=== PATIENT | female | born 1945 | race Caucasian/White ===

== ENCOUNTER → 2016-12-06 | Outpatient (CLI) | payer OTHER | LOC: BHFA 10:45 | PROVIDERS: ATTEND Internal Medicine Cardiovascular Disease | DX: G20 Parkinson's disease (principal); I49.5 Sick sinus syndrome ==

== ENCOUNTER 2018-02-26 10:34 | Emergency (ER) | payer OTHER ==
--- NOTE | 2018-02-26 11:01 | EDPHY ---
H & P Stated Complaint: EYE SURG/CANCER LAST WEEK/NOW WITH HYPOTENSION AND SYNCOPE Time Seen by Provider: 02/26/18 10:52 HPI/ROS: CHIEF COMPLAINT: Syncope HISTORY OF PRESENT ILLNESS: The patient has a history of sick sinus syndrome. She has a pacemaker. She also has a history of presumed vasovagal syncope. She is on no antihypertensive medications. The patient has a history of eye surgery last week. She denies any chest pain or shortness of breath. She had 2 episodes of positional syncope at 8 o'clock at 8:30 a.m. this morning. She has no complaints of chest pain, shortness of breath, fever cough or congestion. The patient contacted her computer forensic specialist who referred her to the emergency department. The patient denies any focal numbness or weakness. She denies any additional complaints. REVIEW OF SYSTEMS: A comprehensive 10 point review of systems is otherwise negative aside from elements mentioned in the history of present illness. Source: Patient Exam Limitations: No limitations - Personal History Current Tetanus Diphtheria and Acellular Pertussis (TDAP): Yes Tetanus Vaccine Date: 2005 - Medical/Surgical History Hx Asthma: Yes Hx Diabetes: No Hx Cardiac Disease: Yes Hx Renal Disease: No Hx Cirrhosis: No Hx Alcoholism: No Hx HIV/AIDS: No Hx Splenectomy or Spleen Trauma: No Other PMH: PARKINSONS/PACEMAKER FOR SICK SINUS/CANCER R EYE - Social History Smoking Status: Never smoked - Physical Exam Exam: General Appearance: Alert, no distress Eyes: Patch over right eye ENT, Mouth: Mucous membranes moist Respiratory: There are no retractions, lungs are clear to auscultation Cardiovascular: 2/6 systolic ejection murmur Gastrointestinal: Abdomen is soft and nontender, no masses, bowel sounds normal Neurological: A&O, normal motor function, normal sensory exam, normal cranial nerves Skin: Warm and dry, no rashes Musculoskeletal: Neck is supple nontender Extremities: symmetrical, full range of motion Constitutional: Initial Vital Signs Temperature (C) 36.4 C 02/26/18 10:40 Heart Rate 70 02/26/18 10:40 Respiratory Rate 18 02/26/18 10:40 Blood Pressure 104/66 02/26/18 10:40 O2 Sat (%) 95 02/26/18 10:40 O2 Delivery Mode Room Air Allergies/Adverse Reactions: No Known Allergies Allergy (Verified 02/26/18 10:36) Home Medications: Medication Instructions Recorded Carbidopa/Levodopa 25/100Mg 1.5 tab PO TID@06,10,14 11/02/15 [Sinemet 25/100 MG (*)] Ciprofloxacin HCl [Ciprofloxacin 1 - 2 drop EACHEYE Q4 11/02/15 Opth Drops] Cyanocobalamin [Vitamin B12 (*)] 1,000 mcg PO DAILY 11/02/15 Docusate Sodium [Colace 100 MG (*)] 200 mg PO HS 11/02/15 Herbals/Supplements -Info Only 1 ea PO DAILY 11/02/15 Ibuprofen [Motrin (*)] 200 mg PO TID PRN 11/02/15 Melatonin [Melatonin 3 MG (*)] 3 mg PO HS 11/02/15 Niacin [Niacin 500 mg (*)] 1,000 mg PO HS 11/02/15 Pramipexole Di-HCl [Mirapex 1 mg 1 mg PO TID@06,10,14 11/02/15 (*)] Rasagiline Mesylate [Azilect] 1 mg PO DAILY 11/02/15 clonazePAM [Klonopin (*)] 0.5 mg PO HS 11/02/15 Medical Decision Making - Diagnostics EKG Interpretation: EKG: Complete interpretation has been separately recorded in the [employer] archive. Summary impression: Av paced rhythm, rate 70 ED Course/Re-evaluation: The patient presents to the ED after 2 episodes of recurrent syncope. She is hemodynamically stable in the emergency department. EKG demonstrates a paced rhythm. The patient had an IV established. She was placed on a electronic device monitor. The patient's pacemaker was interrogated by the pacemaker rep Devin Puentes who reset the CLS response device setting to medium. The patient will be advised to follow up in cardiology clinic. She has no evidence of a anemia, dehydration, concurrent metabolic abnormality, ischemia or traumatic injury. She was observed in the emergency department without recurrent syncopal episode. Differential Diagnosis: Differential diagnosis considered includes pacemaker malfunction, vasovagal syncope, dehydration, metabolic abnormality, arrhythmia, myocardial infarction - Data Points Laboratory Results: Laboratory Results 02/26/18 10:50 02/26/18 10:50 02/26/18 02/26/18 02/26/18 11:00 10:50 10:50 WBC 6.13 10^3/uL 10^3/uL (3.80-9.50) RBC 4.14 10^6/uL L 10^6/uL (4.18-5.33) Hgb 13.4 g/dL g/dL (12.6-16.3) Hct 39.6 % % (38.0-47.0) MCV 95.7 fL fL (81.5-99.8) MCH 32.4 pg pg (27.9-34.1) MCHC 33.8 g/dL g/dL (32.4-36.7) RDW 11.6 % % (11.5-15.2) Plt Count 252 10^3/uL 10^3/uL (150-400) MPV 9.0 fL fL (8.7-11.7) Neut % (Auto) 71.5 % % (39.3-74.2) Lymph % (Auto) 18.4 % % (15.0-45.0) [place] % (Auto) 7.8 % % (4.5-13.0) Eos % (Auto) 1.3 % % (0.6-7.6) Baso % (Auto) 0.5 % % (0.3-1.7) Nucleat RBC Rel Count 0.0 % % (0.0-0.2) Absolute Neuts (auto) 4.38 10^3/uL 10^3/uL (1.70-6.50) Absolute Lymphs (auto) 1.13 10^3/uL 10^3/uL (1.00-3.00) Absolute Monos (auto) 0.48 10^3/uL 10^3/uL (0.30-0.80) Absolute Eos (auto) 0.08 10^3/uL 10^3/uL (0.03-0.40) Absolute Basos (auto) 0.03 10^3/uL 10^3/uL (0.02-0.10) Absolute Nucleated RBC 0.00 10^3/uL 10^3/uL (0-0.01) Immature Gran % 0.5 % % (0.0-1.1) Immature Gran # 0.03 10^3/uL 10^3/uL (0.00-0.10) Sodium 139 mEq/L mEq/L (135-145) Potassium 4.2 mEq/L mEq/L (3.3-5.0) Chloride 102 mEq/L mEq/L (97-110) Carbon Dioxide 27 mEq/l mEq/l (22-31) Anion Gap 10 mEq/L mEq/L (8-16) BUN 25 mg/dL H mg/dL (7-23) Creatinine 0.9 mg/dL mg/dL (0.6-1.0) Estimated GFR > 60 Glucose 94 mg/dL mg/dL (70-100) Calcium 9.6 mg/dL mg/dL (8.5-10.4) POC Troponin I 0.00 ng/mL ng/mL (0.00-0.08) Point of Care Test Results: Chemistry 02/26/18 11:00 POC Troponin I 0.00 ng/mL ng/mL (0.00-0.08) Departure - Departure Disposition: Home, Routine, Self-Care Clinical Impression: Vasovagal syncope Condition: Good Instructions: Syncope (ED) Additional Instructions: 1. Please return to the ED for any recurrent syncope, chest pain, shortness of breath or other concerns. 2. Your pacemaker device has been reset to hopefully improve your symptoms of syncope. 3. Please follow up with Cardiology for recheck within the week. Referrals: [facility]CNULT[facility] [Other] - As per Instructions
--- NOTE | 2018-02-26 11:09 | CPEKG ---
Heart Rate: 70 RR Interval: 857 P-R Interval: 164 QRSD Interval: 100 QT Interval: 436 QTC Interval: 471 QRS [place]: 70 T Wave [place]: 10 EKG Severity - ABNORMAL ECG - EKG Impression: ATRIAL-PACED RHYTHM Electronically Signed By: Carlos Sommer 26-Feb-2018 11:21:43
[2018-02-26 11:10] LABS: PLATELET COUNT 252 10^3/uL (150-400)
[2018-02-26 12:56] VITALS: BP 97/72
== END 2018-02-26 12:56 | disposition home or self-care (01) ==
DX: R55 Syncope and collapse (principal); G20 Parkinson's disease; J45.909 Unspecified asthma, uncomplicated; Z85.840 Personal history of malignant neoplasm of eye; Z95.0 Presence of cardiac pacemaker
CPT/HCPCS: 84484-PO

== ENCOUNTER 2018-12-25 05:37 | Inpatient (IN) | payer OTHER ==
[2018-12-25] MEDS ORDERED: ROPIVACAINE 0.2% 80 MG, EPINEPHrine 0.2 MG, KETOROLAC TROMETHAMINE 30 MG in SYRINGE 0 ML IU ONE (06:00)
[2018-12-25] MEDS ORDERED: TRANEXAMIC ACID 3,000 MG in NS (SYRINGE) 50 ML IRR ONE (06:00)
--- NOTE | 2018-12-25 06:00 | PDHPUP ---
History & Physical Update H&P update statement: This history and physical update is based on an assessment of the patient which was completed after admission or registration (within 24 hours), but prior to the surgery/procedure. H&P update: H&P reviewed & patient examined, no change in patient's condition since H&P completed
[2018-12-25] MEDS ORDERED: FAMOTIDINE 20 MG TAB PO ONE (06:06)
[2018-12-25] MEDS ORDERED: ceFAZolin 2 GM/DEXTROSE 100 ML IV ONE (06:06)
[2018-12-25] MEDS ORDERED: LIDOCAINE 1% 2 ML INJ ID PRN (06:06)
[2018-12-25] MEDS ORDERED: LR 1,000 ML IV ONE (06:06)
[2018-12-25] MEDS ORDERED: ACETAMINOPHEN 325 MG TAB PO ONE (06:06)
[2018-12-25] MEDS ORDERED: DEXAMETHASONE 4 MG/ML VIAL IVP ONE (06:06)
[2018-12-25] MEDS ORDERED: TRANEXAMIC ACID 3,000 MG/50 ML BAG IRR ONE (06:55)
--- NOTE | 2018-12-25 07:05 | POSTANESTH ---
Post Anesthetic Evaluation Cardiovascular Status: Normal, Stable Respiratory Status: Normal, Stable Level of Consciousness/Mental Status: Can Participate in Eval, Alert and Oriented Pain Control: Adequate, Prn Tx Ordered Nausea/Vomiting Control: Adequate, Prn Tx Ordered Complications Possibly Related to Anesthesia: None Noted Notes: Moving B LE, though still weak.
--- NOTE | 2018-12-25 07:08 | PDANEPAE ---
ANE History of Present Illness 73 yo female with L hip OA for L GERRI. ANE Past Medical History - Cardiovascular History Hx Hypertension: No Hx Arrhythmias: Yes Hx Coronary Artery / Peripheral Vascular Disease: No Hx CHF / Valvular Disease: No Hx Palpitations: No Cardiovascular History Comment: h/o autonomic dysfunction leading to orthostatic hypotension. Started florinef and midodrine to correct this. - Pulmonary History Hx COPD: No Hx Asthma/Reactive Airway Disease: Yes Hx Recent Upper Respiratory Infection: No Hx Oxygen in Use at Home: No Hx Sleep Apnea: Yes Sleep Apnea Screening Result - Last Documented: Positive Pulmonary History Comment: uses inhalers. Pt had sleep study about 1.5 yrs ago at [facility]- does not know the results, but does not use any device - Neurologic History Hx Cerebrovascular Accident: No Hx Seizures: No Hx Dementia: No Neurologic History Comment: Parkinson's dz on multi meds - Endocrine History Hx Diabetes: No Hypothyroid: No Hyperthyroid: No - Renal History Hx Renal Disorders: No - Liver History Hx Hepatic Disorders: No - Neurological & Psychiatric Hx Neurological / Psychiatric History Comment: parkinsons disease. anxiety - Cancer History Hx Cancer: Yes Cancer History Comment: skin cancer - Congenital Disorder History Hx Congenital Disorders: No - GI History Hx Gastrointestinal Disorders: No - Other Health History Other Health History: knuckle not healing on right hand - Chronic Pain History Chronic Pain: Yes - Surgical History Prior Surgeries: none in last 10yrs. A/V pacemaker placement 2016 for intermittent complete heart block ANE Review of Systems Review of systems is: negative Review of Systems: - Exercise capacity METS (RN): 2 METS - Systems Muscolosketal: Reports: joint pain - Pacemaker Pacemaker Type: Permanent Pacer/Defib Pacemaker Tire Recapper: Storytreeronik Pacemaker Model: [id number] Pacemaker Mode: DDD-CLS Date Pacemaker Last Checked: 2 WEEKS AGO FROM TODAY ANE Patient History - Allergies Allergies/Adverse Reactions: No Known Allergies Allergy (Verified 12/18/18 09:48) - Home Medications Home Medications: Carbidopa/Levodopa 25/100Mg [Sinemet 25/100 MG (*)] 2 tab PO 08,1030,14,17,21 [Last Taken 12/24/18] Docusate Sodium [Colace 100 MG (*)] 200 mg PO HS 11/02/15 [Last Taken 12/24/18] Rasagiline Mesylate [Azilect] 1 mg PO DAILY 11/02/15 [Last Taken 12/24/18] clonazePAM [Klonopin (*)] 0.5 mg PO HS 11/02/15 [Last Taken 12/24/18] Donepezil HCl [Aricept] 10 mg PO DAILY 12/13/18 [Last Taken Unknown] Entacapone [Comtan 200 MG (RX)] 200 mg PO BID@12,17 12/13/18 [Last Taken ] Fludrocortisone Acetate [Florinef 0.1 MG (RX)] 0.1 mg PO DAILY 12/13/18 [Last Taken 12/24/18] Fluticasone/Vilanterol [Breo Ellipta 100-25 Mcg INH] 1 puffs IH DAILY 12/13/18 [ Last Taken 12/24/18] Meloxicam 15 mg PO DAILY PRN 12/13/18 [Last Taken 12/11/18] Midodrine HCl 10 mg PO TID@08,12,17 12/13/18 [Last Taken 12/24/18] Ondansetron Odt [Zofran Odt 4 mg (*)] 4 mg PO Q4 PRN 12/13/18 [Last Taken ] Sertraline HCl [Zoloft 25mg (*)] 25 mg PO DAILY 12/13/18 [Last Taken 12/24/18] clonazePAM [Klonopin (*)] 0.25 mg PO DAILY PRN 12/13/18 [Last Taken 12/24/18] - NPO status NPO Since - Liquids (Date): 12/24/18 NPO Since - Liquids (Time): 18:00 NPO Since - Solids (Date): 12/24/18 NPO Since - Solids (Time): 18:00 - Anes Hx Anes Hx: no prior problems - Smoking Hx Smoking Status: Never smoked - Alcohol Use Alcohol Use: Occasionally - Family Anes Hx Family Anes Hx: neg - N/A Family Hx Anesthesia Complications: none ANE Labs/Vital Signs - Vital Signs Vital Signs: reviewed preoperatively; see RN documention for details Blood Pressure: 179/97 (pts states this is unusually high for her) Height: 172.72 cm Weight: 59.874 kg ANE Physical Exam - Airway Neck exam: decreased ROM Mallampati Score: Class 2 Mouth exam: normal dental/mouth exam - Pulmonary Pulmonary: clear to auscultation - Cardiovascular Cardiovascular: regular rate and rhythym - ASA Status ASA Status: III ANE Anesthesia Plan Anesthesia Plan: spinal
[2018-12-25] MEDS ORDERED: fentaNYL 100 MCG/2 ML INJ ONE (07:44)
[2018-12-25] MEDS ORDERED: PROPOFOL/EMULSION 500 MG/50 ML BOTTLE IV ONE (07:44)
[2018-12-25] MEDS ORDERED: LIDOCAINE 2% 2 ML INJ ONE ×2 (07:44)
[2018-12-25] MEDS ORDERED: DEXAMETHASONE 4 MG/ML VIAL ONE (07:47)
[2018-12-25] MEDS ORDERED: NALOXONE HCL 0.4 MG/ML INJ IVP PRN (09:23)
[2018-12-25] MEDS ORDERED: oxyCODONE IR 5 MG TAB PO PRN (09:23)
[2018-12-25] MEDS ORDERED: LR 250 ML IV PRN (09:23)
[2018-12-25] MEDS ORDERED: ALBUTEROL 3 ML DEYVIAL IH PRN (09:23)
[2018-12-25] MEDS ORDERED: ONDANSETRON 4 MG/2 ML VIAL IVP PRN ×2 (09:23→09:36)
[2018-12-25] MEDS ORDERED: ACETAMINOPHEN 500 MG TAB PO PRN (09:23)
--- NOTE | 2018-12-25 09:35 | POSTOPPROG ---
Post Op Note Date of Operation: 12/25/18 Surgeon: Ren Escobar [employer] Dispatcher: Arti GUERRERO Anesthesiologist: Dr. Sariah Weston Anesthesia: Spinal Pre-op Diagnosis: left hip OA Post-op Diagnosis: same Indication: left hip pain Procedure: LTHA Findings: severe OA of left hip Inf/Abcess present in the surg proc area at time of surgery?: No EBL: 50-100
[2018-12-25] MEDS ORDERED: METOCLOPRAMIDE 10 MG/2 ML VIAL IVP PRN (09:36)
[2018-12-25] MEDS ORDERED: TEMAZEPAM 15 MG CAP PO PRN (09:36)
[2018-12-25] MEDS ORDERED: MAGNESIUM HYDROXIDE 30 ML UDCUP PO PRN (09:36)
[2018-12-25] MEDS ORDERED: BISACODYL 10 MG SUPP PR PRN (09:36)
[2018-12-25] MEDS ORDERED: POLYETHYLENE GLYCOL 3350 17 GM PKT PO PRN (09:36)
[2018-12-25] MEDS ORDERED: PROMETHAZINE HCL 25 MG SUPPR PR PRN (09:36)
[2018-12-25] MEDS ORDERED: DIPHENOXYLATE/ATROPINE LOMOTIL 1 TAB PO PRN (09:36)
[2018-12-25] MEDS ORDERED: PROMETHAZINE HCL 25 MG/ML INJ IVP PRN (09:36)
[2018-12-25] MEDS ORDERED: ONDANSETRON DISINTEGRATING 4 MG TAB PO PRN (09:36)
[2018-12-25] MEDS ORDERED: diphenhydrAMINE 25 MG CAP PO PRN (09:36)
[2018-12-25] MEDS ORDERED: LACTULOSE 20 GM/30 ML UDCUP PO PRN (09:36)
[2018-12-25] MEDS ORDERED: clonazePAM 0.5 MG TAB PO PRN (09:40)
[2018-12-25] MEDS ORDERED: LR 1,000 ML IV SCH (10:00)
--- NOTE | 2018-12-25 10:26 | PDMN ---
Medical Necessity Medical necessity: [facility] S560 hip arthroplasty A-2 days: OP: L GERRI
[2018-12-25] MEDS: CARBIDOPA/LEVODOPA 25 MG/100 MG TAB PO SCH ×4 (12:20→20:15)
[2018-12-25] MEDS: ENTACAPONE 200 MG TAB PO SCH ×2 (13:05→13:09)
--- NOTE | 2018-12-25 14:17 | SOAPPROG ---
SOAP Progress Note Assessment/Plan: Assessment: s/p left GERRI, anterior approach - procedure earlier today with Dr. Escobar Doing well History of Parkinsons, pacemaker Plan: Begin d/c planning - likely home tomorrow, will have support from her Continue VTE ppx- aspirin 81 mg BID x 4 weeks, KAREN hose x 2 weeks, SCDs in hospital Continue oral pain medication oxycodone, Tylenol, Celebrex; Dr. Escobar will avoid Flexeril in the patient due to the possibility of serotonin syndrome ( patient is on sertraline and rasagiline) Continue PT efforts WBAT, ROM as tolerated follow anterior total hip precautions Follow up with Arti Rodriguez PA-C, on 01/14/19 at 11:15 am Subjective: Patient states she is doing well, left hip pain is minimal at this time secondary to the spinal anesthesia. She is planning on going home tomorrow and will have the support of her . She denies SOB, CP, fever, chills. Objective: Vital Signs Temp Pulse Resp BP Pulse Ox 36.7 C 87 15 117/66 97 12/25/18 13:19 12/25/18 13:19 12/25/18 13:19 12/25/18 13:19 12/25/18 13:19 12/24/18 12/25/18 12/26/18 05:59 05:59 05:59 Intake Total 1000 Output Total 1050 Balance -50 Patient resting comfortably in bed, no acute distress. Her is present in the room. LLE: Hip wound dressings clean, dry and intact. Lower leg compartments are soft and nontender. Negative Homans sign bilaterally. Patient can actively DF and PF her left foot and great toe against resistance. Grossly NVI distally. ICD10 Worksheet Patient Problems: Problems Problem Status Onset Unilateral primary osteoarthritis, left hip Acute Syncope Acute
[2018-12-25] MEDS: MIDODRINE HCL 10 MG TAB PO SCH ×2 (15:02→16:24)
[2018-12-25] MEDS: ACETAMINOPHEN 325 MG TAB PO SCH (16:24)
[2018-12-25] MEDS: ceFAZolin 2 GM/DEXTROSE 100 ML IV SCH ×2 (16:24→23:14)
[2018-12-25] MEDS: clonazePAM 0.5 MG TAB PO SCH (20:14)
[2018-12-25] MEDS: SENNOSIDES/DOCUSATE SODIUM TAB PO SCH (20:14)
[2018-12-25] MEDS: ASPIRIN 81 MG CHEWABLE TAB PO SCH (20:14)
[2018-12-25] MEDS: FAMOTIDINE 20 MG TAB PO SCH (20:15)
[2018-12-25] MEDS: MOMETASONE IH SCH (20:52)
[2018-12-25] MEDS: FORMOTEROL IH SCH (20:52)
[2018-12-26] MEDS: ACETAMINOPHEN 325 MG TAB PO SCH ×5 (00:06→21:36)
[2018-12-26] MEDS: CARBIDOPA/LEVODOPA 25 MG/100 MG TAB PO SCH ×5 (08:13→20:55)
[2018-12-26] MEDS: SENNOSIDES/DOCUSATE SODIUM TAB PO SCH ×2 (08:13→20:54)
[2018-12-26] MEDS: DONEPEZIL HCL 5 MG TAB PO SCH (08:13)
[2018-12-26] MEDS: ASPIRIN 81 MG CHEWABLE TAB PO SCH ×2 (08:13→20:54)
[2018-12-26] MEDS: FLUDROCORTISONE ACETATE 0.1 MG TAB PO SCH (08:14)
[2018-12-26] MEDS: SERTRALINE HCL 25 MG TAB PO SCH (08:14)
[2018-12-26] MEDS: FAMOTIDINE 20 MG TAB PO SCH ×2 (08:14→20:54)
[2018-12-26] MEDS: MIDODRINE HCL 10 MG TAB PO SCH ×3 (08:27→17:01)
[2018-12-26] MEDS ORDERED: Fluticasone/Vilanterol [Breo Ellipta 100-25 Mcg Inh] 1 PUFFS IH SCH (09:00)
[2018-12-26] MEDS: FORMOTEROL IH SCH ×2 (10:33→15:44)
[2018-12-26] MEDS: MOMETASONE IH SCH ×2 (10:33→15:44)
[2018-12-26] MEDS: Rasagiline Mesylate [Azilect] 1 MG PO SCH ×3 (10:35→13:04)
--- NOTE | 2018-12-26 12:37 | SOAPPROG ---
SOAP Progress Note Assessment/Plan: Assessment: s/p left GERRI, anterior approach with Dr. Escobar - POD 1 Hip is doing well, but patient was very lethargic, confused this morning History of Parkinsons, pacemaker Plan: Continue d/c planning - she will have support from her , we will keep the patient another couple days to ensure she is doing well. I am going to recommend that her stay the night Hospitalist consult - hypertension, urinary retention, confusion, Parkinson's Continue VTE ppx- aspirin 81 mg BID x 4 weeks, KAREN hose x 2 weeks, SCDs in hospital Continue oral pain medication as needed - oxycodone, Tylenol, Celebrex; Dr. Escobar will avoid Flexeril in the patient due to the possibility of serotonin syndrome (patient is on sertraline and rasagiline) Continue PT efforts WBAT, ROM as tolerated follow anterior total hip precautions. OT ordered. Needs PT/OT clearance prior to d/c Follow up with Arti Rodriguez PA-C, on 01/14/19 at 11:15 am Subjective: This morning around 7:20 Dr. Escobar, Arti Rodriguez PA-C and myself saw the patient. It was very difficult to awaken her and once we did she was confused, not speaking in full sentences, very lethargic. Her nurse stated the patient was sundowning last evening and throughout the night she was trying to get out of her bed. She needed to have a Weaver catheter placed 3 times. I went back to see the patient around 11:00 am and she is more awake and alert. Patient states she is doing well, left hip pain is minimal at this time. She does not recall Dr. Escobar coming into her room this morning. Her is also present in the room. I informed the patient that we would like for her to stay in the hospital tonight and possibly another night. Dr. Escobar agrees that OT and the hospitalist evaluate the patient. She denies SOB, CP, fever, chills. Objective: Vital Signs Temp Pulse Resp BP Pulse Ox 36.9 C 84 27 H 80/42 L 96 12/26/18 11:22 12/26/18 11:22 12/26/18 11:22 12/26/18 11:22 12/26/18 11:22 Laboratory Results 12/26/18 04:55 12/25/18 12/26/18 12/27/18 05:59 05:59 05:59 Intake Total 1750 Output Total 5915 250 Balance -1625 -250 Patient resting comfortably in bed, no acute distress. LLE: Hip wound dressings clean, dry and intact. Lower leg compartments are soft and nontender. Negative Homans sign bilaterally. Patient can actively DF and PF her left foot and great toe against resistance. Grossly NVI distally. ICD10 Worksheet Patient Problems: Problems Problem Status Onset Unilateral primary osteoarthritis, left hip Acute Syncope Acute
--- NOTE | 2018-12-26 13:06 | PDHOSCONS ---
History and Physical - Chief Complaint Confusion, Hypotension - History of Present Illness This is a 73 yo female who we have been asked to consult on for confusion, hypotension, and medical mgmt. She had Left TKA by Dr. Escobar yesterday. She has an extensive medical history including Parkinson's, Dementia, Depression, Orthostatic Hypotension (severe), and SSS a/p PPM. Earlier today, she was found to have confusion. Her BP has been intermittently low in the 70's systolic. HR has been ok. She has been afebrile. Hgb is decreased slightly but appropriate. She has not had a fever. She is currently awake and eating and is able to provide a full history of why she is here. She reports that her BP ranges between systolic of 80's-120's and is lower if a dose of her medication is missed. She was not given Midodrine this morning. She has been on Florinef for over a year. She has also been on Midodrine and this was increased recently. There was some concern about urinary retention. The pt reports that this is typically not a problem but when it has been she start to urinate freely and regularly. She does not take any diuretics. She is not on urinary retention meds. is at bedside Denies cough, sob, n/v, dizziness, fever PMHx: per above PSHx: PPM, LTKA SocHx: FmHx: non contributory History Information - Allergies/Home Medication List Allergies/Adverse Reactions: No Known Allergies Allergy (Verified 12/18/18 09:48) Home Medications: Carbidopa/Levodopa 25/100Mg [Sinemet 25/100 MG (*)] 2 tab PO 08,1030,14,17,21 [Last Taken 12/24/18] Docusate Sodium [Colace 100 MG (*)] 200 mg PO HS 11/02/15 [Last Taken 12/24/18] Rasagiline Mesylate [Azilect] 1 mg PO DAILY 11/02/15 [Last Taken 12/24/18] clonazePAM [Klonopin (*)] 0.5 mg PO HS 11/02/15 [Last Taken 12/24/18] Donepezil HCl [Aricept] 10 mg PO DAILY 12/13/18 [Last Taken Unknown] Fludrocortisone Acetate [Florinef] 0.1 mg PO DAILY 12/13/18 [Last Taken 12/24/18 ] Midodrine HCl 10 mg PO TID@08,12,17 12/13/18 [Last Taken 12/24/18] Ondansetron Odt [Zofran Odt 4 mg (*)] 4 mg PO Q4 PRN 12/13/18 [Last Taken ] Sertraline HCl [Zoloft 25mg (*)] 25 mg PO DAILY 12/13/18 [Last Taken 12/24/18] clonazePAM [Klonopin (*)] 0.25 mg PO DAILY PRN 12/13/18 [Last Taken 12/24/18] Mometasone/Formoterol [Dulera 100 Mcg/5 Mcg Inhaler] 4 puffs IH BID 12/25/18 [ Last Taken Unknown] I have personally reviewed and updated: medical history, social history - Social History Smoking Status: Never smoked Alcohol Use: Occasionally Review of Systems Review of Systems: ROS: 10pt was reviewed & negative except for what was stated in HPI & below Physical Exam Physical Exam: Temp Pulse Resp BP Pulse Ox 36.9 C 84 27 H 80/42 L 96 12/26/18 11:22 12/26/18 11:22 12/26/18 11:22 12/26/18 11:22 12/26/18 11:22 O2 (L/minute) 1 Constitutional: no apparent distress Eyes: PERRL, EOMI Ears, Nose, Mouth, Throat: moist mucous membranes, hearing normal Cardiovascular: regular rate and rhythym Respiratory: no respiratory distress, no rales or rhonchi, clear to auscultation , reduced air movement Gastrointestinal: normoactive bowel sounds, soft, non-tender abdomen Skin: warm Neurologic: AAOx3 Psychiatric: interacting appropriately, not anxious, not encephalopathic Lymph, Heme, Immunologic: No petechiae Lab Data & Imaging Review 12/26/18 04:55 Hgb 10.5 g/dL (12.6-16.3) L 12/26/18 04:55 Hct 31.2 % (38.0-47.0) L 12/26/18 04:55 Assessment & Plan Assessment: #s/p L TKA -mgmt per primary #Acute Encephalopathy, appears resolved. She is back to baseline currently. -She may have some delirium intermittently and its important for her to return to a familiar environment soon, when clinically indicated -Avoid sedating meds, but she has had minimal narcotics #Hypotension in a pt with hx of orthostatic hypotension and syncope felt to be due to autonomic Dysfunction -She has variable BP -It is important to continue both Florinef and Midodrine as scheduled. Her low BP today is likely due to missed dose -Volume status looks ok -Afebrile -no e/o of severe anemia -For completion sake, I will obtain a full lab panel #Post operative anemia, mild -likely not contributing to hypotension #Parkinson's -cont home meds: Carbidopa, Rasagiline #Dementia: on Aricept #s/p PPM for SSS #Depression: home meds #Urinary retention: This is not atypical. She reports resolution and voiding ok now. Will manage PRN. VTE: Per Primary Thank you for this consult. The pt will likely be ok for discharge tomorrow. We will follow in the hospital.
[2018-12-26] MEDS: clonazePAM 0.5 MG TAB PO SCH (20:54)
[2018-12-26] MEDS: oxyCODONE IR 5 MG TAB PO PRN (20:56)
[2018-12-27] MEDS: ACETAMINOPHEN 325 MG TAB PO SCH ×2 (03:58→09:07)
[2018-12-27 05:17] LABS: PLATELET COUNT 225 10^3/uL (150-400)
[2018-12-27] MEDS: MOMETASONE IH SCH (09:00)
[2018-12-27] MEDS: FORMOTEROL IH SCH (09:00)
[2018-12-27] MEDS: MIDODRINE HCL 10 MG TAB PO SCH ×2 (09:07→12:02)
[2018-12-27] MEDS: FLUDROCORTISONE ACETATE 0.1 MG TAB PO SCH (09:07)
[2018-12-27] MEDS: DONEPEZIL HCL 5 MG TAB PO SCH (09:07)
[2018-12-27] MEDS: CARBIDOPA/LEVODOPA 25 MG/100 MG TAB PO SCH ×3 (09:07→14:00)
[2018-12-27] MEDS: ASPIRIN 81 MG CHEWABLE TAB PO SCH (09:07)
[2018-12-27] MEDS: SERTRALINE HCL 25 MG TAB PO SCH (09:08)
[2018-12-27] MEDS: FAMOTIDINE 20 MG TAB PO SCH (09:08)
[2018-12-27] MEDS: SENNOSIDES/DOCUSATE SODIUM TAB PO SCH (09:08)
[2018-12-27] MEDS: Rasagiline Mesylate [Azilect] 1 MG PO SCH (09:15)
--- NOTE | 2018-12-27 10:52 | HOSPPROG ---
Hospitalist Progress Note Assessment/Plan: #s/p L TKA -mgmt per primary #Acute Encephalopathy, appears resolved. She is back to baseline currently. -She may have some delirium intermittently and its important for her to return to a familiar environment soon, when clinically indicated -Avoid sedating meds, but she has had minimal narcotics #Hypotension in a pt with hx of orthostatic hypotension and syncope felt to be due to autonomic Dysfunction -now normotensive -It is important to continue both Florinef and Midodrine as scheduled. Her low BP today is likely due to missed dose -Volume status looks ok -Afebrile -no e/o of severe anemia -labs look ok #Post operative anemia, mild -likely not contributing to hypotension #Parkinson's -cont home meds: Carbidopa, Rasagiline #Dementia: on Aricept #s/p PPM for SSS #Depression: home meds #Urinary retention: This is not atypical. She reports resolution and voiding ok now. Will manage PRN. VTE: Per Primary Thank you for this consult. The pt is ok for discharge from a hospitalist perspective. Subjective: feels her usual self. Alert and oriented. no cp or sob. BP is ok. Objective: Vital Signs Temp Pulse Resp BP Pulse Ox 37.1 C 81 16 134/81 H 95 12/27/18 07:45 12/27/18 09:04 12/27/18 09:04 12/27/18 07:45 12/27/18 09:04 Laboratory Results 12/27/18 04:43 12/27/18 04:43 12/26/18 12/27/18 12/28/18 05:59 05:59 05:59 Intake Total 1750 1650 Output Total 3375 900 Balance -1625 750 - Physical Exam Constitutional: no apparent distress Eyes: PERRL Ears, Nose, Mouth, Throat: moist mucous membranes, hearing normal Cardiovascular: regular rate and rhythym Respiratory: no respiratory distress, no rales or rhonchi, clear to auscultation Gastrointestinal: normoactive bowel sounds, soft, non-tender abdomen Skin: warm Neurologic: AAOx3 Psychiatric: interacting appropriately, not anxious, not encephalopathic ICD10 Worksheet Patient Problems: Problems Problem Status Onset Unilateral primary osteoarthritis, left hip Acute Syncope Acute
[2018-12-27 11:53] VITALS: BP 110/63
--- NOTE | 2018-12-27 12:26 | SOAPPROG ---
SOAP Progress Note Assessment/Plan: Assessment: Patient is doing well POD 2 s/p LTHA Pain management: pain is well controlled on oral pain meds. VTE ppx: recommend aspirin 81 mg BID for 4 weeks, cont KAREN and SCDs Anemia: level is expected initially postop. Asymptomatic. Continue to monitor Hypotension: history of orthostatic hypotension likely exacerbated by surgery- improved today. Continue Florinef and Midodrine Parkinson's: continue home meds Dementia: continue aricept Urinary retention: resolved D/c planning: Patient has improved since yesterday and would like to be discharged to home today. Patient must be released from PT before discharge to home. Plan: 12/27/18 12:22 Subjective: Pain well controlled on oral pain meds. No nausea, vomiting, shortness of breath or chest pain Objective: Vital Signs Temp Pulse Resp BP Pulse Ox 36.6 C 92 18 110/63 2 L 12/27/18 11:50 12/27/18 11:50 12/27/18 11:50 12/27/18 11:50 12/27/18 11:50 Laboratory Results 12/27/18 04:43 12/27/18 04:43 12/26/18 12/27/18 12/28/18 05:59 05:59 05:59 Intake Total 1750 1650 Output Total 6615 900 Balance -1625 750 LLE: incision dressing clean and dry; positive PF/DF ICD10 Worksheet Patient Problems: Problems Problem Status Onset Unilateral primary osteoarthritis, left hip Acute Primary osteoarthritis of left hip Acute Primary osteoarthritis of left knee Acute Syncope Acute
[2018-12-27] MEDS: oxyCODONE IR 5 MG TAB PO PRN (14:02)
--- NOTE | 2018-12-28 12:30 | GOP ---
[f rep st] OPERATIVE REPORT DATE OF OPERATION: 12/25/2018 SURGEON: Luci Escobar MD DESIGN DRAFTSMAN: Alivia Rodriguez P.A.-C. PREOPERATIVE DIAGNOSIS: Left hip osteoarthritis. POSTOPERATIVE DIAGNOSIS: Left hip osteoarthritis. PROCEDURE PERFORMED: Left total hip arthroplasty with x-ray. FINDINGS: ESTIMATED BLOOD LOSS: 200 cc. INDICATIONS: The patient has progressively worsening arthritis of the hip which has failed medical m anagement. The patient understands the treatment options including continued non-operative care and has selected surgical intervention. The patient has decided to undergo total hip arthroplasty via th e direct anterior approach, understanding the risks of the procedure including, but not limited to, n eurovascular injury, infection, persistent pain, component wear and loosening, deep venous thrombosis , pulmonary embolism, limb length inequality, hip instability (including dislocation), and intra-oper ative fractures. DESCRIPTION OF PROCEDURE: After proper identification of the patient including verification and karin ing the surgical site, the patient was brought to the operating room and placed in the supine positio n. All bony prominences were well padded. Anesthesia was induced without complication and intraveno us prophylactic antibiotics were administered prior to skin incision. The operative leg was placed in the Trumpf Arch table extension and the well leg in a [place]ofin leg ho lder. The patient was prepped and draped in the usual sterile fashion. The C-arm was draped for int ra-operative fluoroscopy to check acetabular position, femoral component position including leg lengt h and femoral offset. Attention was then drawn to surgical exposure of the hip. An incision was made with a #10 [place] r blade starting 3 cm lateral and 3 cm distal to the anterior superior iliac spine measuring 8-10 cm and coursing distally toward the greater trochanter. The skin and subcutaneous tissues were divided sharply down to the fascia annamarie. The fascia annamarie was incised in line with the skin incision exposing the underlying tensor fascia annamarie muscle. The muscle was bluntly elevated from the fascia and the f irst extracapsular Cobra retractor was placed laterally at the junction of the superior femoral neck and greater trochanter. The lateral femoral circumflex vessels were identified, cauterized, and divi ded with the Aquamantys bipolar cautery. The deep investing fascia of the TFL was divided to allow p jim mobilization of the muscle preventing damage during the retraction. The reflected head of the rectus femoris muscle was elevated off the anterior hip capsule and a medial Cobra retractor was plac ed just proximal to the lesser trochanter. The anterior capsulotomy was made sharply from the superolateral acetabulum to the saddle junction of the superior femoral neck and greater trochanter, then coursing inferomedial towards the lesser troc hanter. The retractors were then placed in the intracapsular position for femoral neck osteotomy. C orresponding to pre-operative templating, the osteotomy was made with the oscillating saw carefully p rotecting the greater trochanter and soft tissues. The femoral head was removed from the acetabulum with a corkscrew and confirmed to be severely arthritic with exposed bone, deformity and osteophytes. Similar findings were confirmed in the acetabulum. The Arch table extension was then placed in 40 degrees external rotation. Attention was then drawn to the acetabular preparation. After placement of the anterior and posterio r Cobra retractors outside the labrum and intracapsular, the circumferential labrum was removed sharp ly. The foveal contents were then removed and hemostasis obtained with cautery. The first reamer selected was sized using the removed femoral head. Reaming began with medialization and then commenced in 2 mm increments at 45 degrees of abduction and 15 degrees of anteversion using fluoroscopic navigation. Reaming ceased 1 mm less than the definitive acetabular component and theresa esponded to the pre-operative templating. The final acetabular component was inserted using fluorosc opy to achieve proper orientation yielding excellent purchase and stability in the acetabulum. The f inal acetabular liner was then placed and its seating confirmed. Attention was then turned to the femur. The Arch table extension was placed in extension and adducti on, delivering the osteotomized femoral neck into the wound. A 2-pronged femoral elevator was placed at the calcar and another at the tip of the greater trochanter. The posterolateral capsule was rele ased with cautery allowing mobilization of the femur lateral and anterior for preparation. The exter nal rotators were visualized and preserved. A curette and rongeur were used to open the starting poi nt for broaching. Serial broaching started with the #0 broach and ended with the broach that exhibit ed excellent fit in the proximal femur. A change in pitch during mallet strikes was accompanied by t he inability to advance the broach any further. The trial reduction was performed and fluoroscopic n avigation was utilized to check limb length. Adjustments were made to equalize limb length according ly. After the final trials were accepted they were removed and the wound was copiously lavaged. The femo ral component was seated to the same depth as the final broach and the femoral head was impacted onto the clean trunnion. The hip was then reduced for the final time and once more fluoroscopy was used to check that limb length equality was achieved. The wound was irrigated and closed in layers, the fascia annamarie with 2-0 Quill, the subcutaneous tissue with 2-0 Quill, and the skin with Dermabond. Sterile dressings were applied. Final sharps and spon ge counts were accurate. The patient was then transferred to a hospital bed and [facility] stable condition. IMPLANTS: Accolade II size 5 at 132. Acetabular component a Trident II 52 mm. Liner is a Trident X 3 36 mm. Head is a Biolox Delta 36 mm -2.5. /[id number]/MODL
== END 2018-12-27 14:30 | disposition home or self-care (01) | DRG 470 ==
LOC: F3N 05:37
PROVIDERS: ADMIT Orthopaedic Surgery; ATTEND Orthopaedic Surgery
PROC: 0SRB04Z Replacement of Left Hip Joint with Ceramic on Polyethylene Synthetic Substitute, Open Approach (ICD-10-PCS; principal; 2018-12-25 08:00)
DX: M16.12 Unilateral primary osteoarthritis, left hip (principal); G20 Parkinson's disease; I95.1 Orthostatic hypotension; F45.8 Other somatoform disorders; D62 Acute posthemorrhagic anemia; Z95.0 Presence of cardiac pacemaker; R33.8 Other retention of urine; F03.90 Unspecified dementia, unspecified severity, without behavioral disturbance, psychotic disturbance, mood disturbance, and anxiety
CPT/HCPCS: 97110-GP; 97116-GP; 97161-GP; 97166-GO; 97535-GO; J0171; J0690; J1100; J1885; J2704; J2795; J3010